=== PATIENT | female | born 1945 | race Caucasian/White ===

== ENCOUNTER → 2016-06-23 | Outpatient (CLI) | payer MEDICARE, OTHER ==
[~2016-06-23] MED LIST: ACET-2723 PO; ASCO500T8 PO; ASPI-558 PO; CHOL100034 PO; CLOP75TA19 PO; FISH1CAP59 PO; HYDR-2164 PO; HYDR-4246 PO; IOHEXOL 300 MG/ML 100ml INJECTION ONE; LOSA50TA52 PO; MAGN400T31 PO; METO-68 PO; METO25TA6 PO; NITR0.4T SL; NITR1PAT62 TD; NORMAL SALINE 100 ML ONE; ONDA4TAB7 SL; PANT40TA PO; POTA10TA14 PO; SALINE FLUSH 10ml SYRINGE ONE; SIMV80TA5 PO; [UNRECOGNIZED DRUG - CODE] PO
[2016-06-23 11:01] LABS: BASOPHILS % (AUTO) 0.3 % (0-2); EOSINOPHILS # (AUTO) 0.1 T/MM3 (0-0.5); EOSINOPHILS % (AUTO) 1.6 % (0-4); HCT - HEMATOCRIT 38.8 % (36-46); HGB - HEMOGLOBIN 12.9 GM/DL (12-16); IMMATURE GRANULOCYTE # (AUTO) 0.01 T/MM3 (0.00-0.03); IMMATURE GRANULOCYTE % (AUTO) 0.3 % (0.0-0.5); LYMPHOCYTES # (AUTO) 1.3 T/MM3 (1-4.8); LYMPHOCYTES % (AUTO) 33.9 % (23-45); MEAN CORPUSCULAR HGB 30.4 UUG (26-34); MEAN CORPUSCULAR HGB CONC(MCHC 33.2 GM/DL (31-37); MEAN CORPUSCULAR VOLUME 91.5 UM3 (80-100); MEAN PLATELET VOLUME 10.7 UM3 (9.4-12.4); MONOCYTES # (AUTO) 0.4 T/MM3 (0-0.8); MONOCYTES % (AUTO) 10.3 % (0-9.0); NEUTROPHILS % (AUTO) 53.6 % (33-66); RED BLOOD COUNT 4.24 M/MM3 (4.00-5.20); WBC - WHITE BLOOD COUNT 3.8 T/MM3 (4.5-11.0)
[2016-06-23 11:14] LABS: ALBUMIN/GLOBULIN RATIO 1.5 RATIO (1.1-2.2); ALKALINE PHOSPHATASE 87 U/L (38-126); ALT (SGPT) 42 U/L (9-52); ANION GAP 10 MEQ/L (5-15); AST (SGOT) 28 U/L (14-36); BUN/CREATININE RATIO 28 RATIO (6-26); CALCIUM 9.9 MG/DL (8.4-10.2); CHLORIDE 101 MEQ/L (98-107); CO2 - CARBON DIOXIDE 29 MEQ/L (22-30); CREATININE 0.8 MG/DL (0.7-1.2); GLOMERULAR FILTRATION RATE 71; GLUCOSE 95 MG/DL (65-110); LDH 392 U/L (313-618); POTASSIUM 3.2 MEQ/L (3.6-5); SODIUM 140 MEQ/L (134-144); TOTAL PROTEIN 6.6 G/DL (6.3-8.2)
--- NOTE | 2016-06-23 11:22 | DI ---
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 Coronal and sagittal two-dimensional reformats. Automated Exposure Control and Iterative Reconstruction dose reducing techniques were utilized. Contrast: Omnipaque 300 93 mL Findings: Chest: The lungs are stable in appearance. No consolidative pneumonia, pleural effusion or pneumothorax. No new or worrisome pulmonary nodules or masses. The central airways are patent. Bilateral thyroid nodules again noted. No axillary or mediastinal adenopathy. Heart size is unchanged. No pericardial effusion. Abdomen/pelvis: The liver is normal. Gallbladder is surgically absent. The spleen, pancreas and adrenal glands are within normal limits. Kidneys are stable. No abdominal or pelvic lymphadenopathy. Bladder is normal. Uterus is surgically absent. No free fluid or bowel obstruction. Minimal sigmoid diverticulosis. There is new inflammation and stranding seen adjacent to the tip of the appendix best seen on axial images 62 through 67. The appendix is also enlarged at 1 cm in diameter. On prior studies the appendix was normal caliber and there were no visible inflammatory changes in this area. No free air or abscess identified. Bone windows show degenerative change in the spine with multiple vertebral hemangiomas. Impression: 1. CT findings suggesting acute appendicitis. Recommend clinical and laboratory correlation. Surgical consultation may be helpful. 2. No evidence of metastatic disease in the chest, abdomen or pelvis. Findings were called to Dr. Dunbar at 1117 on 06/23/16. .
== END ==
LOC: IMA 08:25
PROVIDERS: ATTEND Internal Medicine Medical Oncology
DX: C82.18 Follicular lymphoma grade II, lymph nodes of multiple sites (principal); K38.9 Disease of appendix, unspecified; D64.9 Anemia, unspecified; D70.2 Other drug-induced agranulocytosis
CPT/HCPCS: 36415; 71260; 74177; 80053; 83615; 85025; J7050; Q9967

== ENCOUNTER 2016-07-10 11:26 | Day surgery (SDC) | payer MEDICARE, OTHER ==
[~2016-07-10] VITALS: Ht 177.8 cm; Wt 105.2 kg
[2016-07-10] VITALS (21 sets, daily range): BP systolic 117–144; BP diastolic 59–75; PULSE 70–92; RESP 12–30; TEMP 97.3–98; O2SAT 90–100; Ht 177.8 cm; Wt 105.2 kg
[~2016-07-10 11:26] MED LIST changes: +ATOR40TA64 PO; -FISH1CAP59 PO; -HYDR-4246 PO; -IOHEXOL 300 MG/ML 100ml INJECTION ONE; +LIDOCAINE 1% (10mg/ml) 2ml SDV INJ ONE; +LR 1,000 ML IV PRN; -NORMAL SALINE 100 ML ONE; -ONDA4TAB7 SL; -SALINE FLUSH 10ml SYRINGE ONE; -SIMV80TA5 PO
--- OUTSIDE RECORDS SUMMARY | 2016-07-10 11:30 | XMS REPORT | CCD ---
Author Author [facility] Organization Unknown Address [address], [place] [id number] Phone 0 Care Team Providers Care Microsoft Application Developer Name Role Phone LORRAINE NGUYEN Attending Physician 0 VINCENZO ENRIQUE Physician [phone] Vital Signs Unknown or Not Available. Allergies Allergy Code Allergy Type Reaction Status IBUPROFEN 5640 Drug allergy Active Procedures Unknown or Not Available. History of Immunizations Unknown or Not Available. Problems Unknown or Not Available. Results CALCIUM - Collect Date/Time: 05/24/2015 10:55 Test Name Code Test Result Test Units Test Ref Range CALCIUM 10.5 mg/dL L=8.5 H=10.1 LIPID PANEL - Collect Date/Time: 05/24/2015 10:55 Test Name Code Test Result Test Units Test Ref Range CHOLESTEROL 195 mg/ dL L=0 H=200 TRIGLYCERIDES 180 mg /dL L=30 H=150 HDL 51 mg/dL L=50 H=60 LDL, CALC 108 mg/dL L=0 H=100 VLDL 36 mg/dL L=0 H=40 CHOL/HDL RISK 3.8 RATIO L=0.0 H=4.4 PT FASTING: YES N/A PTH, INTACT - Collect Date/Time: 05/24/2015 10:55 Test Name Code Test Result Test Units Test Ref Range PTH, Intact 2731-8 72 pg/mL 15-65 Active Medications Medication Code Dose Units Frequency Route Modification Start Date/Time Allopurinol 300MG Oral Tablet [id number] 300 MILLIGRAMS DAILY ORAL 08/15/2012 11:45 Prescription Detail 300 MILLIGRAMS ORAL DAILY Aspirin 81MG Oral Tablet [id number] 81 MILLIGRAMS AT BEDTIME ORAL 08/15/2012 11:45 Prescription Detail 81 MILLIGRAMS ORAL AT BEDTIME Ativan 0.5MG Oral Tablet [id number] 0.5 MILLIGRAMS NEEDED ORAL 08/15/2012 11:45 Prescription Detail 0.5 MILLIGRAMS ORAL NEEDED Citracal + D 315MG-200IU Oral Tablet [id number] 1 EACH DAILY ORAL 08/15/2012 11:45 Prescription Detail 1 EACH ORAL DAILY Fish Oil 1000MG Oral Capsule, Liquid Filled [id number] 0046 MILLIGRAMS THREE TIMES DAILY ORAL 2012 11:45 Prescription Detail 1000 MILLIGRAMS ORAL THREE TIMES DAILY Magnesium Oxide 400MG Oral Tablet [id number] 400 MILLIGRAMS DAILY ORAL 08/15/2012 11:45 Prescription Detail 400 MILLIGRAMS ORAL DAILY Metoprolol 25MG Oral Tablet [id number] 25 MILLIGRAMS AT BEDTIME ORAL 08/15/2012 11:45 Prescription Detail 25 MILLIGRAMS ORAL AT BEDTIME Metoprolol 50MG Oral Tablet 865911 50 MILLIGRAMS DAILY ORAL 08/15/2012 11:45 Prescription Detail 50 MILLIGRAMS ORAL DAILY Multivitamin Oral Tablet [id number] 1 EACH DAILY ORAL 08/15/2012 11:45 Prescription Detail 1 EACH ORAL DAILY Niacin 1000MG Oral Tablet, Extended Release [id number] 5690 MILLIGRAMS AT BEDTIME ORAL 08/15/2012 11:45 Prescription Detail 1000 MILLIGRAMS ORAL AT BEDTIME Nitrostat 0.4MG Sublingual Tablet 047055 0.4 MILLIGRAMS NEEDED SUBLINGUAL 08/15/2012 11:45 Prescription Detail 0.4 MILLIGRAMS SUBLINGUAL NEEDED Plavix 75MG Oral Tablet [id number] 75 MILLIGRAMS DAILY ORAL 08/15/2012 11:45 Prescription Detail 75 MILLIGRAMS ORAL DAILY Protonix 40MG Oral Tablet, Enteric Coated 287889 40 MILLIGRAMS DAILY ORAL 08/15/2012 11:45 Prescription Detail 40 MILLIGRAMS ORAL DAILY Simvastatin 80MG Oral Tablet [id number] 80 MILLIGRAMS AT BEDTIME ORAL 08/15/2012 11:45 Prescription Detail 80 MILLIGRAMS ORAL AT BEDTIME Tylenol Extra Strength 500MG Oral Tablet [id number] 4473 MILLIGRAMS TWICE A DAY ORAL 08/15/2012 11:45 Prescription Detail 1000 MILLIGRAMS ORAL TWICE A DAY Vitamin B Complex Oral Capsule 288248 1 EACH DAILY ORAL 08/15/2012 11:45 Prescription Detail 1 EACH ORAL DAILY Medications Administered During Visit Unknown or Not Available. Encounters Encounter Diagnosis Diagnosis Code Start Date Primary hyperparathyroidism E210 2015 Social History Smoking Status Code Start Date End Date Never smoker [id number] Patient Decision Aids Unknown or Not Available. Discharge Instructions You were admitted to [facility] on 05/24/2015 10:27 with a principal diagnosis of Primary hyperparathyroidism You had the following tests done: CALCIUM LIPID PANEL PTH, INTACT You were discharged from [facility] on 05/24/2015 10:27 Should you have any questions prior to discharge, please contact a member of your healthcare team. If you have left the hospital and have any questions, please contact your primary care physician. Chief Complaint and Reason For Visit Unknown or Not Available. Function Status Unknown or Not Available. Plan of Care Unknown or Not Available. Referral/Transition of Care Unknown or Not Available.
--- OUTSIDE RECORDS SUMMARY | 2016-07-10 11:30 | XMS REPORT | CCD ---
Author Author [facility] Organization Unknown Address [address], [place] [id number] Phone 0 Care Team Providers Care Commuter Train Operator Name Role Phone BRYCE JAVIER Attending Physician [phone] Vital Signs Unknown or Not Available. Allergies Allergy Code Allergy Type Reaction Status IBUPROFEN 5640 Drug allergy Active Procedures Unknown or Not Available. History of Immunizations Unknown or Not Available. Problems Unknown or Not Available. Results BASIC METABOLIC - Collect Date/Time: 03/18/2016 15:05 Test Name Code Test Result Test Units Test Ref Range GLUCOSE 97 mg/dL L=70 H=110 BUN 25 mg/dL L=7 H=18 CREATININE 0.89 mg/ dL L=0.60 H=1.30 AGE 70 YEARS GFR 62.7 L=60.0 H=120 SODIUM 139 mmol/L L=136 H=145 POTASSIUM 3.4 mmol/ L L=3.5 H=5.1 CHLORIDE 101 mmol/L L=98 H=107 CO2 28 mmol/L L=21 H=32 CALCIUM 9.8 mg/dL L=8.5 H=10.1 LIPID PANEL - Collect Date/Time: 03/18/2016 15:05 Test Name Code Test Result Test Units Test Ref Range CHOLESTEROL 164 mg/ dL L=0 H=200 TRIGLYCERIDES 139 mg /dL L=30 H=150 HDL 56 mg/dL L=50 H=60 LDL, CALC 80 mg/dL L=0 H=100 VLDL 28 mg/dL L=0 H=40 CHOL/HDL RISK 2.9 RATIO L=0.0 H=4.4 PT FASTING: NO N/A CBC W/ DIFF - Collect Date/Time: 03/18/2016 15:05 Test Name Code Test Result Test Units Test Ref Range WBC 4.4 x10^3 L=4.8 H=10.8 RBC 4.70 x10^6 L=4.20 H=5.40 HEMOGLOBIN 13.9 g/ dL L=12.0 H=16.0 HEMATOCRIT 41.3 % L=37.0 H=47.0 MCV 88 fL L=80 H=100 MCH 29.6 pg L=27.0 H=33.0 MCHC 33.7 g/dL L=33.0 H=37.0 RDW 12.5 % L=11.5 H=14.5 PLATELETS 157 x10^3 L=150 H=450 MPV 8.7 fL L=7.8 H=11.0 NEUTROPHILS 50.1 % L=40.0 H=80.0 LYMPHOCYTES 33.1 % L=20.0 H=45.0 MONOCYTES 14.1 % L=0.0 H=10.0 EOSINOPHILS 2.0 % L=0.0 H=5.0 BASOPHILS 0.7 % L=0.0 H=2.0 REFLEX MAN DIFF NO N /A Active Medications Medication Code Dose Units Frequency Route Modification Start Date/Time Allopurinol 300MG Oral Tablet [id number] 300 MILLIGRAMS DAILY ORAL 08/15/2012 11:45 Prescription Detail 300 MILLIGRAMS ORAL DAILY Aspirin 81MG Oral Tablet 427802 81 MILLIGRAMS AT BEDTIME ORAL 08/15/2012 11:45 Prescription Detail 81 MILLIGRAMS ORAL AT BEDTIME Ativan 0.5MG Oral Tablet 019711 0.5 MILLIGRAMS NEEDED ORAL 08/15/2012 11:45 Prescription Detail 0.5 MILLIGRAMS ORAL NEEDED Citracal + D 315MG-200IU Oral Tablet [id number] 1 EACH DAILY ORAL 08/15/2012 11:45 Prescription Detail 1 EACH ORAL DAILY Fish Oil 1000MG Oral Capsule, Liquid Filled [id number] 2548 MILLIGRAMS THREE TIMES DAILY ORAL 2012 11:45 Prescription Detail 1000 MILLIGRAMS ORAL THREE TIMES DAILY Magnesium Oxide 400MG Oral Tablet [id number] 400 MILLIGRAMS DAILY ORAL 08/15/2012 11:45 Prescription Detail 400 MILLIGRAMS ORAL DAILY Metoprolol 25MG Oral Tablet [id number] 25 MILLIGRAMS AT BEDTIME ORAL 08/15/2012 11:45 Prescription Detail 25 MILLIGRAMS ORAL AT BEDTIME Metoprolol 50MG Oral Tablet 418874 50 MILLIGRAMS DAILY ORAL 08/15/2012 11:45 Prescription Detail 50 MILLIGRAMS ORAL DAILY Multivitamin Oral Tablet [id number] 1 EACH DAILY ORAL 08/15/2012 11:45 Prescription Detail 1 EACH ORAL DAILY Niacin 1000MG Oral Tablet, Extended Release [id number] 4119 MILLIGRAMS AT BEDTIME ORAL 08/15/2012 11:45 Prescription Detail 1000 MILLIGRAMS ORAL AT BEDTIME Nitrostat 0.4MG Sublingual Tablet 690176 0.4 MILLIGRAMS NEEDED SUBLINGUAL 08/15/2012 11:45 Prescription Detail 0.4 MILLIGRAMS SUBLINGUAL NEEDED Plavix 75MG Oral Tablet [id number] 75 MILLIGRAMS DAILY ORAL 08/15/2012 11:45 Prescription Detail 75 MILLIGRAMS ORAL DAILY Protonix 40MG Oral Tablet, Enteric Coated 566164 40 MILLIGRAMS DAILY ORAL 08/15/2012 11:45 Prescription Detail 40 MILLIGRAMS ORAL DAILY Simvastatin 80MG Oral Tablet 754747 80 MILLIGRAMS AT BEDTIME ORAL 08/15/2012 11:45 Prescription Detail 80 MILLIGRAMS ORAL AT BEDTIME Tylenol Extra Strength 500MG Oral Tablet [id number] 5429 MILLIGRAMS TWICE A DAY ORAL 08/15/2012 11:45 Prescription Detail 1000 MILLIGRAMS ORAL TWICE A DAY Vitamin B Complex Oral Capsule 978530 1 EACH DAILY ORAL 08/15/2012 11:45 Prescription Detail 1 EACH ORAL DAILY Medications Administered During Visit Unknown or Not Available. Encounters Encounter Diagnosis Diagnosis Code Start Date Essential (primary) hypertension I10 Social History Smoking Status Code Start Date End Date Never smoker [id number] Patient Decision Aids Unknown or Not Available. Discharge Instructions You were admitted to [facility] on 03/18/2016 15:01 with a principal diagnosis of Essential (primary) hypertension You had the following tests done: BASIC METABOLIC CBC W/ DIFF LIPID PANEL You were discharged from [facility] on 03/18/2016 15:01 Should you have any questions prior to discharge, please contact a member of your healthcare team. If you have left the hospital and have any questions, please contact your primary care physician. Chief Complaint and Reason For Visit Chief Complaint Date of Onset LAB Function Status Unknown or Not Available. Plan of Care Unknown or Not Available. Referral/Transition of Care Unknown or Not Available.
--- OUTSIDE RECORDS SUMMARY | 2016-07-10 11:31 | XMS REPORT | Continuity of Care Document ---
Author Author [facility] Organization [facility] Address Unknown Phone Unavailable Allergies Active Description Code Type Severity Reaction Onset Reported/Identified Relationship to Patient Clinical Status Yes ezetimibe ezetimibe Drug Allergy Mild COUGH 09/13/2014 Yes ibuprofen ibuprofen Drug Allergy Mild SWELLING, RASH, HIVES 09/13/2014 Medications Problems Date Dx Coded Attending Type Code Diagnosis Diagnosed By 09/13/2014 Theresa CHRISTIAN, Carlos Alegre V72.83 Procedures Code Description Performed By Performed On 17.42 LAPAROSCOPIC ROBOTIC ASSISTED PROCEDURE Carlos Cardenas MD 09/26/2014 40.3 REGIONAL LYMPH NODE EXC Carlos Cardenas MD 09/26/2014 65.63 LAPAROSCOP REMOVE OVARIES/TUBES Carlos Cardenas MD 09/26/2014 68.41 LAPAROSCOPIC TOTAL ABDOMINAL HYSTERECTOMY Carlos Cardenas MD 09/26/2014 Results Test Result Range CBC - 09/13/14 09:31 MEAN CELL HGB 30.4 pg 27.0-33.0 MEAN CELL HGB CONCENTRATION 34.4 g/dL 32.0-37.0 MEAN CELL VOLUME 88.3 fl 80.0-100.0 RED BLOOD CELL 4.54 m/cumm 4.00-6.00 RED CELL DISTRIBUTION WIDTH 12.9 % 11.0- 15.6 WHITE BLOOD CELL 4.2 k/cumm 5.0-10.0 HEMOGLOBIN 13.8 gm/dL 12.0-16.0 HEMATOCRIT 40.1 % 37.0-47.0 PLATELET COUNT 131 k/cumm 150-400 METABOLIC PANEL, BASIC - 09/13/14 09:31 POTASSIUM 3.6 mmol/L 3.5-5.3 EST GFR (MDRD) 43 mL/min > 59 ANION GAP 9 mmol/L 5-15 GLUCOSE 117 mg/dL 70-99 CALCIUM 10.3 mg/dL 8.5-10.1 BLOOD UREA NITROGEN 20 mg/dL 7-20 CREATININE 1.3 mg/dL 0.6-1.0 SODIUM 139 mmol/L 135-148 CHLORIDE 105 mmol/L 98-110 CARBON DIOXIDE 25 mmol/L 21-32 POTASSIUM - 09/26/14 07:37 POTASSIUM 3.9 mmol/L 3.5-5.3 FLUID CYTOLOGY - 09/26/14 09:20 FLUID CYTOLOGY SPECIMEN RECEIVED HGB HCT - 09/26/14 16:28 MEAN CELL VOLUME 90.1 fl 80.0-100.0 HEMOGLOBIN 13.0 gm/dL 12.0-16.0 HEMATOCRIT 39.3 % 37.0-47.0 Encounters ACCT No. Visit Date/Time Discharge Status Pt. Type Provider Facility Loc./Unit Complaint [id number] 09/26/2014 06:11:00 2014 22:23:00 DIS Outpatient Theresa CHRISTIAN, [facility] [id number] 09/13/2014 08:24:00 2014 08:24:00 DIS Outpatient Theresa CHRISTIAN, [facility]
--- OUTSIDE RECORDS SUMMARY | 2016-07-10 11:31 | XMS REPORT | CCD ---
Author Author [facility] Organization Unknown Address [address], [place] [id number] Phone 0 Care Team Providers Care Superintendent Stevedoring Name Role Phone ENRIQUE, VINCENZO Attending Physician [phone] BRYCE JAVIER Physician [phone] Vital Signs Unknown or Not Available. Allergies Allergy Code Allergy Type Reaction Status IBUPROFEN 5640 Drug allergy Active Procedures Unknown or Not Available. History of Immunizations Unknown or Not Available. Problems Unknown or Not Available. Results CALCIUM - Collect Date/Time: 05/29/2016 14:35 Test Name Code Test Result Test Units Test Ref Range CALCIUM 10.1 mg/dL L=8.5 H=10.1 PTH, INTACT - Collect Date/Time: 05/29/2016 14:35 Test Name Code Test Result Test Units Test Ref Range PTH, Intact 2731-8 89 pg/mL 15-65 Active Medications Medication Code Dose Units Frequency Route Modification Start Date/Time Allopurinol 300MG Oral Tablet [id number] 300 MILLIGRAMS DAILY ORAL 08/15/2012 11:45 Prescription Detail 300 MILLIGRAMS ORAL DAILY Aspirin 81MG Oral Tablet [id number] 81 MILLIGRAMS AT BEDTIME ORAL 08/15/2012 11:45 Prescription Detail 81 MILLIGRAMS ORAL AT BEDTIME Ativan 0.5MG Oral Tablet 629858 0.5 MILLIGRAMS NEEDED ORAL 08/15/2012 11:45 Prescription Detail 0.5 MILLIGRAMS ORAL NEEDED Citracal + D 315MG-200IU Oral Tablet [id number] 1 EACH DAILY ORAL 08/15/2012 11:45 Prescription Detail 1 EACH ORAL DAILY Fish Oil 1000MG Oral Capsule, Liquid Filled [id number] 6693 MILLIGRAMS THREE TIMES DAILY ORAL 2012 11:45 Prescription Detail 1000 MILLIGRAMS ORAL THREE TIMES DAILY Magnesium Oxide 400MG Oral Tablet 345512 400 MILLIGRAMS DAILY ORAL 08/15/2012 11:45 Prescription Detail 400 MILLIGRAMS ORAL DAILY Metoprolol 25MG Oral Tablet [id number] 25 MILLIGRAMS AT BEDTIME ORAL 08/15/2012 11:45 Prescription Detail 25 MILLIGRAMS ORAL AT BEDTIME Metoprolol 50MG Oral Tablet [id number] 50 MILLIGRAMS DAILY ORAL 08/15/2012 11:45 Prescription Detail 50 MILLIGRAMS ORAL DAILY Multivitamin Oral Tablet [id number] 1 EACH DAILY ORAL 08/15/2012 11:45 Prescription Detail 1 EACH ORAL DAILY Niacin 1000MG Oral Tablet, Extended Release [id number] 2203 MILLIGRAMS AT BEDTIME ORAL 08/15/2012 11:45 Prescription Detail 1000 MILLIGRAMS ORAL AT BEDTIME Nitrostat 0.4MG Sublingual Tablet 723681 0.4 MILLIGRAMS NEEDED SUBLINGUAL 08/15/2012 11:45 Prescription Detail 0.4 MILLIGRAMS SUBLINGUAL NEEDED Plavix 75MG Oral Tablet [id number] 75 MILLIGRAMS DAILY ORAL 08/15/2012 11:45 Prescription Detail 75 MILLIGRAMS ORAL DAILY Protonix 40MG Oral Tablet, Enteric Coated [id number] 40 MILLIGRAMS DAILY ORAL 08/15/2012 11:45 Prescription Detail 40 MILLIGRAMS ORAL DAILY Simvastatin 80MG Oral Tablet [id number] 80 MILLIGRAMS AT BEDTIME ORAL 08/15/2012 11:45 Prescription Detail 80 MILLIGRAMS ORAL AT BEDTIME Tylenol Extra Strength 500MG Oral Tablet [id number] 6681 MILLIGRAMS TWICE A DAY ORAL 08/15/2012 11:45 Prescription Detail 1000 MILLIGRAMS ORAL TWICE A DAY Vitamin B Complex Oral Capsule 170429 1 EACH DAILY ORAL 08/15/2012 11:45 Prescription Detail 1 EACH ORAL DAILY Medications Administered During Visit Unknown or Not Available. Encounters Encounter Diagnosis Diagnosis Code Start Date Primary hyperparathyroidism E210 2016 Social History Smoking Status Code Start Date End Date Never smoker [id number] Patient Decision Aids Unknown or Not Available. Discharge Instructions You were admitted to [facility] on 05/29/2016 14:17 with a principal diagnosis of Primary hyperparathyroidism You had the following tests done: CALCIUM PTH, INTACT You were discharged from [facility] on 05/29/2016 14:17 Should you have any questions prior to [...]
--- OUTSIDE RECORDS SUMMARY | 2016-07-10 11:31 | XMS REPORT | CCD ---
Author Author [facility] Organization Unknown Address [address], [place] [address] Phone 0 Care Team Providers Care Procurement Agent Name Role Phone HOLLY MELENDEZ Attending Physician [phone] Vital Signs Unknown or Not Available. Allergies Allergy Code Allergy Type Reaction Status IBUPROFEN 5640 Drug allergy Active Procedures Unknown or Not Available. History of Immunizations Unknown or Not Available. Problems Unknown or Not Available. Results Unknown or Not Available. Active Medications Medication Code Dose Units Frequency Route Modification Start Date/Time Allopurinol 300MG Oral Tablet [id number] 300 MILLIGRAMS DAILY ORAL 08/15/2012 11:45 Prescription Detail 300 MILLIGRAMS ORAL DAILY Aspirin 81MG Oral Tablet [id number] 81 MILLIGRAMS AT BEDTIME ORAL 08/15/2012 11:45 Prescription Detail 81 MILLIGRAMS ORAL AT BEDTIME Ativan 0.5MG Oral Tablet 751844 0.5 MILLIGRAMS NEEDED ORAL 08/15/2012 11:45 Prescription Detail 0.5 MILLIGRAMS ORAL NEEDED Citracal + D 315MG-200IU Oral Tablet [id number] 1 EACH DAILY ORAL 08/15/2012 11:45 Prescription Detail 1 EACH ORAL DAILY Fish Oil 1000MG Oral Capsule, Liquid Filled [id number] 1917 MILLIGRAMS THREE TIMES DAILY ORAL 2012 11:45 Prescription Detail 1000 MILLIGRAMS ORAL THREE TIMES DAILY Magnesium Oxide 400MG Oral Tablet [id number] 400 MILLIGRAMS DAILY ORAL 08/15/2012 11:45 Prescription Detail 400 MILLIGRAMS ORAL DAILY Metoprolol 25MG Oral Tablet [id number] 25 MILLIGRAMS AT BEDTIME ORAL 08/15/2012 11:45 Prescription Detail 25 MILLIGRAMS ORAL AT BEDTIME Metoprolol 50MG Oral Tablet [id number] 50 MILLIGRAMS DAILY ORAL 08/15/2012 11:45 Prescription Detail 50 MILLIGRAMS ORAL DAILY Multivitamin Oral Tablet [id number] 1 EACH DAILY ORAL 08/15/2012 11:45 Prescription Detail 1 EACH ORAL DAILY Niacin 1000MG Oral Tablet, Extended Release [id number] 3102 MILLIGRAMS AT BEDTIME ORAL 08/15/2012 11:45 Prescription Detail 1000 MILLIGRAMS ORAL AT BEDTIME Nitrostat 0.4MG Sublingual Tablet 611643 0.4 MILLIGRAMS NEEDED SUBLINGUAL 08/15/2012 11:45 Prescription Detail 0.4 MILLIGRAMS SUBLINGUAL NEEDED Plavix 75MG Oral Tablet 688683 75 MILLIGRAMS DAILY ORAL 08/15/2012 11:45 Prescription Detail 75 MILLIGRAMS ORAL DAILY Protonix 40MG Oral Tablet, Enteric Coated 288983 40 MILLIGRAMS DAILY ORAL 08/15/2012 11:45 Prescription Detail 40 MILLIGRAMS ORAL DAILY Simvastatin 80MG Oral Tablet [id number] 80 MILLIGRAMS AT BEDTIME ORAL 08/15/2012 11:45 Prescription Detail 80 MILLIGRAMS ORAL AT BEDTIME Tylenol Extra Strength 500MG Oral Tablet 228790 6447 MILLIGRAMS TWICE A DAY ORAL 08/15/2012 11:45 Prescription Detail 1000 MILLIGRAMS ORAL TWICE A DAY Vitamin B Complex Oral Capsule 175717 1 EACH DAILY ORAL 08/15/2012 11:45 Prescription Detail 1 EACH ORAL DAILY Medications Administered During Visit Unknown or Not Available. Encounters Encounter Diagnosis Diagnosis Code Start Date Pain in right wrist [id number] 05/04/2015 Social History Smoking Status Code Start Date End Date Never smoker [id number] Patient Decision Aids Unknown or Not Available. Discharge Instructions You were admitted to [facility] on 05/04/2015 with a principal diagnosis of Pain in right wrist. Should you have any questions prior to discharge, please contact a member of your healthcare team. If you have left the hospital and have any questions, please contact your primary care physician. Chief Complaint and Reason For Visit Chief Complaint Date of Onset O.T. Function Status Unknown or Not Available. Plan of Care Unknown or Not Available. Referral/Transition of Care Unknown or Not Available.
[2016-07-10 12:25] LABS: BASOPHILS % (AUTO) 0.2 % (0-2); EOSINOPHILS # (AUTO) 0.1 T/MM3 (0-0.5); HCT - HEMATOCRIT 41.7 % (36-46); HGB - HEMOGLOBIN 14.2 GM/DL (12-16); LYMPHOCYTES # (AUTO) 1.2 T/MM3 (1-4.8); LYMPHOCYTES % (AUTO) 24.3 % (23-45); MEAN CORPUSCULAR HGB 30.6 UUG (26-34); MEAN CORPUSCULAR HGB CONC(MCHC 34.1 GM/DL (31-37); MEAN CORPUSCULAR VOLUME 89.9 UM3 (80-100); MEAN PLATELET VOLUME 11.6 UM3 (9.4-12.4); MONOCYTES # (AUTO) 0.4 T/MM3 (0-0.8); MONOCYTES % (AUTO) 8.4 % (0-9.0); NEUTROPHILS #(AUTO)-ABSOLUTE 3.4 T/MM3 (1.8-7.7); NEUTROPHILS % (AUTO) 66.1 % (33-66); RED BLOOD COUNT 4.64 M/MM3 (4.00-5.20); WBC - WHITE BLOOD COUNT 5.1 T/MM3 (4.5-11.0)
[2016-07-10 12:35] LABS: ANION GAP 12 MEQ/L (5-15); BUN/CREATININE RATIO 25 RATIO (6-26); CALCIUM 10.8 MG/DL (8.4-10.2); CHLORIDE 102 MEQ/L (98-107); CO2 - CARBON DIOXIDE 30 MEQ/L (22-30); CREATININE 0.8 MG/DL (0.7-1.2); GLOMERULAR FILTRATION RATE 71; GLUCOSE 117 MG/DL (65-110); POTASSIUM 3.4 MEQ/L (3.6-5); SODIUM 144 MEQ/L (134-144)
[2016-07-10] MEDS ORDERED: ERTAPENEM 1 G in NORMAL SALINE 100 ML IV ONE (13:00)
--- NOTE | 2016-07-10 13:48 | ANESPREOP ---
Anesthesia Record Date and Time DATE: 07/10/16 TIME: 13:44 Pre-Op Diagnosis rt. lower abd. pain Proposed Surgical Procedure DX LAPARASCOPY/LAP APPY Allergies: Coded Allergies: ibuprofen (Verified Allergy, Intermediate, SWOLLEN,HIVES, 07/10/16) ezetimibe (Verified Adverse Reaction, Mild, COUGH, 07/10/16) Ht/Wt/BMI Height: 5 ' 10.00 " Weight: 105.200 kg BMI: 33.3 kg/m2 Vital Signs Date Time Temp Pulse Resp B/P Pulse Ox O2 Delivery O2 Flow Rate FiO2 07/10/16 11:56 98.0 72 16 144/75 95 Room Air Medications Inpatient Medications Current Medications Medications (Trade) Dose Ordered Sig/Korin Start Time Stop Time Status Last Admin Dose Admin Lactated Ringer's (Lactated Ringers) 1,000 ml @ 50 mls/hr Q20H PRN 07/10/16 07:00 07/10/16 12:24 50 MLS/HR Acetaminophen (Tylenol Extra Strength) 500 Mg Tablet, 1,000 MG PO BID, (Reported ) Last Taken: on 07/09/162229 Ascorbic Acid (Vitamin C) 500 Mg Tab.chew, 1 TAB PO DAILY, (Reported) Last Taken: on Unknown Date & Time Aspirin (Aspir 81) 81 Mg Tablet.dr, 1 TAB PO HS, (Reported) Last Taken: on 07/02/16 2300 Atorvastatin Calcium (Atorvastatin Calcium) 40 Mg Tablet, 1 TAB PO HS, (Reported) Last Taken: on 07/09/162229 Cholecalciferol (Vitamin D3) (Vitamin D3) 1,000 Unit Tab.chew, 1 TAB PO DAILY, (Reported) Last Taken: on 07/09/16 08 Clopidogrel Bisulfate (Plavix) 75 Mg Tablet, 1 TAB PO DAILY, (Reported) Last Taken: on 07/02/16 08 Hydrochlorothiazide (Hydrochlorothiazide) 25 Mg Tablet, 25 MG PO DAILY, (Reported) Last Taken: on 07/09/16829 Losartan Potassium (Losartan Potassium) 50 Mg Tablet, 50 MG PO DAILY, (Reported) Last Taken: on 07/09/16 08 Magnesium Oxide (Magox 400) 400 Mg Tablet, 800 MG PO DAILY, (Reported) Last Taken: on 07/09/16829 Metoprolol Tartrate (Metoprolol Tartrate) 50 Mg Tablet, 50 MG PO DAILY, (Reported) Last Taken: on 07/10/16829 Metoprolol Tartrate (Metoprolol Tartrate) 25 Mg Tablet, 25 MG PO HS, (Reported) Last Taken: on 07/09/162229 Niacin (Slo-Niacin) 500 Mg Tablet.er, 500 MG PO HS, (Reported) Last Taken: on 07/09/162229 Nitroglycerin (Nitroglycerin 24 HR Patch 0.2 MG/ HR) 1 Each Patch.td24, TD PRN, (Reported) Last Taken: on Unknown Date & Time Nitroglycerin (Nitrostat) 0.4 Mg Tablet , 0.4 MG SL PRN, (Reported) Last Taken: on Unknown Date & Time Pantoprazole Sodium (Protonix) 40 Mg Tablet.dr, 40 MG PO ACB, (Reported) Take 1 tablet, by mouth, one time a day before breakfast. Last Taken: on 07/10/16829 Potassium Chloride (Potassium Chloride) 10 Meq Tablet.er, 10 MEQ PO WB, (Reported) Take 1 tablet, by mouth, daily with breakfast Last Taken: on 07/09/16829 Currently on Beta Radha: Yes Beta Radha Last Taken: METPROLOL AT 0830 06/09/16 Medical/Surgical History Anesthesia PMH: Reports: *Angina (none since HEART CATH IN 2012), *Dyspnea ( WITH EXERTION), *Hypertension, *IN (2006), Arthritis, CHF (MILD), COPD (PER H&P ; patient denies), Cancer (UTERIN,NON HODG[place]INS LYMPHOMA 2012 - REMISSION), Deep Vein Thrombosis (1974-RIGHT LEG), Hyperlipidemia, Obesity, Reflux (controlled with med), Thyroid Disease (HYPERPARATHYROIDISM), Denies: *Diabetes, Anesthesia Reactions (NO AIRWAY ISSUES KNOWN), Asthma, Blood Transfusion Reac, CVA/Stroke/ TIA, Clotting Problems (ON PLAVIX), Glaucoma, Headaches, Hepatitis, Hiatal Hernia, Malignant Hyperthermia, Pneumonia, Renal Disease, Rheumatic Fever, Seizures, Sleep Apnea, Tuberculosis Smoking Status: Former smoker Has pt. smoked today?: No Use Chewing Tobacco?: No Second Hand Exposure: No Substance Use Type: does not use Substance last used: unknown Alcohol Intake: rarely Last Drink: unknown HX of Last Menstrual Period: 2014 Past Surgical History Orthopedic Surgeries: Yes - PLATE IN BILATERAL ARM Abdominal Surgeries: Yes - LAP SIVA Genitourinary Surgeries: No Cardiac Surgeries: Yes - STENT X 2 2009 or 2010; normal heart cath 2012 Endocrine Surgeries: No Reproductive Surgeries: Yes - COLD KNIFE CONE CERVIX,HYSTERECTOMY Neurological Surgeries: No Ear Surgeries: No Nose Surgeries: No Throat Surgeries: No Other Surgeries: Yes - COLONOSCOPY, POWER PORT; Lymph node biopsy right axilla Anesthesia Adverse Reactions: FOUND none Family Hx of Anesthesia Advers: none Hx of Motion Sickness: No Pertinent Findings Laboratory Tests 07/10/16 12:11 EKG Rhythm: Sinus Arhythmia EKG Ectopy: PAC Physical Exam Respiratory: Bilat breath sounds equal, Lungs clear Cardiovascular: FOUND Irregularly irregular, FOUND No murmur Airway Assessment Mallampati Score: II TMD: 3 Fingerbreadths Neck Extension: Good Overall Assessment: No Airway Concerns ASA: 2 Plan Anesthesia Plan: GETA Discussion Discussed risks/options/alternatives of anesthesia and questions answered. Patient consents. Nursing pain assessment noted. Present: Family Member Attestation Statement Prior to the delivery of any anesthetic medication, I examined the patient, developed the plan, obtained the patient's consent and discussed the risk and benefits of the procedure with the patient/guardian. JOY LEBRON OUTSIDE RIGGER Jul 10, 2016 13:48
[2016-07-10] MEDS ORDERED: BUPIVACAINE 0.25%/EPI 1:200,000 30ml SDV ONE (13:53)
[2016-07-10] MEDS ORDERED: VECURONIUM 10mg/10ml INJECTION IV ONE (13:55)
[2016-07-10] MEDS ORDERED: PROPOFOL 200mg 20 ML IV ONE (13:55)
[2016-07-10] MEDS ORDERED: ROCURONIUM 50mg/5ml INJECTION IV ONE ×2 (13:55)
[2016-07-10] MEDS ORDERED: LIDOCAINE 2% (20mg/ml) 5ml PF SDV ONE ×2 (13:55)
[2016-07-10] MEDS ORDERED: FENTANYL 250mcg/5ml INJECTION ONE (13:57)
[2016-07-10] MEDS ORDERED: MIDAZOLAM 2mg/2ml INJECTION ONE (13:59)
[2016-07-10] MEDS ORDERED: ONDANSETRON 4mg/2ml INJECTION ONE (13:59)
[2016-07-10] MEDS ORDERED: GLYCOPYRROLATE 0.4mg/2ml INJECTION ONE (13:59)
[2016-07-10] MEDS ORDERED: DESFLURANE 240 ML LIQUID IH ONE (14:20)
[2016-07-10] MEDS ORDERED: SUGAMMADEX 200 MG/2 ML INJECTION IV ONE (14:52)
[2016-07-10] MEDS ORDERED: LR 1,000 ML IV SCH (15:07)
--- NOTE | 2016-07-10 15:12 | GSPOSTPN ---
Procedure Procedure Date: Jul 10, 2016 Surgeon: David Assisting Surgeon: Teodoro Zhu Anesthesia: Local, GETA ASA: 2 Procedure Diagnostic laparoscopy, appendectomy GS Diagnosis Postop Diagnosis chronic appendicitis Complications Complications Estimated Blood Loss See Anesthesia Record. Vital Signs See Anesthesia and PACU record. KINZA ZHU APRN, CWS Jul 10, 2016 15:12
[2016-07-10] MEDS ORDERED: MORPHINE SULFATE 4 MG SYRINGE IV PRN (15:15)
[2016-07-10] MEDS ORDERED: NITROGLYCERIN 0.4 MG SUBLINGUAL TABLET SL SCH (15:15)
[2016-07-10] MEDS ORDERED: NITROGLYCERIN 0.2 MG/HR PATCH TD PRN (15:15)
[2016-07-10] MEDS ORDERED: HYDROCODONE/APAP 5 mg/325 mg TABLET PO PRN (15:15)
[2016-07-10] MEDS ORDERED: HYDR-4246 PO (15:16)
[2016-07-10] MEDS ORDERED: NITROGLYCERIN 0.4 MG SUBLINGUAL TABLET SL PRN (15:30)
[2016-07-10] MEDS: HYDROMORPHONE 2mg/ml INJECTION IV PRN ×2 (15:38→15:49)
--- NOTE | 2016-07-10 16:05 | NUR ---
TRANSFER FROM SURGERY VIA CART. PT ASSISTED TRANSFER FROM CART TO BED WITH RNX2 AND SLIDEBOARD. PT A&OX3. REPORTS PAIN 2/10. ABDOMINAL INCISION SITES X3, DERMABOND, C/D/I. WILL CONTINUE TO MONITOR.
--- NOTE | 2016-07-10 16:56 | ANESPO ---
Post-Op Note Date 07/10/16 Time: 15:46 Status Pt Participated in Evaluation: Pt participated in person Vital Signs Date Time Temp Pulse Resp B/P Pulse Ox O2 Delivery O2 Flow Rate FiO2 07/10/16 16:35 74 16 134/69 90 Room Air 07/10/16 16:05 97.3 Respiratory Function: Airway patent, Regular respirations Cardiovascular Function: Regular pulse Mental Status: Alert/oriented Pain Level Intensity: 3 Hydration: IV infusing Complications during Recovery None apparent Follow-Up Instructions Instructions Per Surgeon CHUCK YARBROUGH CRNA Jul 10, 2016 16:55
--- NOTE | 2016-07-10 19:20 | NUR ---
STATUS/DISCHARGE PT A&OX3. VSS. X3 LAPAROSCOPIC ABDOMINAL SITES, DERMABOND INTACT, SITES ARE ASYMPTOMATIC. PT REPORTS PAIN 1-2/10, DENIES NEED FOR PAIN MEDICATION. REVIEWED DISCHARGE INSTRUCTIONS WITH PT, ANSWERING ALL QUESTIONS. PRESCRIPTION SENT PREVIOUSLY WITH FAMILY TO FILL PRIOR TO DISCHARGE. PT COMMITS TO FOLLOW-UP APPT. PT REQUESTS PRN [facility] IN ADVANCE OF DRIVE HOME, REPORTING PAIN 1/10. PLACED DISCHARGE DOCUMENTS IN PT FOLDER. FAMILY RETURNED TO PICK-UP PT. PT TRANSFERRED BY WHEELCHAIR TO FAMILY CAR, DRIVING.
[2016-07-11] MEDS ORDERED: PANTOPRAZOLE 40 MG TABLET PO SCH (06:30)
[2016-07-11] MEDS ORDERED: POTASSIUM CHLORIDE 10 MEQ TABLET PO SCH (08:00)
--- NOTE | 2016-07-11 08:31 | OPNOTEF ---
DATE OF PROCEDURE 07/10/2016 SURGEON Arsh Hernandez MD PREOPERATIVE DIAGNOSIS History for right lower quadrant abdominal pain, history for abnormal CT scan revealing evidence for appendicitis. POSTOPERATIVE DIAGNOSIS History for right lower quadrant abdominal pain, history for abnormal CT scan revealing evidence for appendicitis, intraoperative findings consistent with chronic appendicitis. PROCEDURE Laparoscopic appendectomy. ANESTHESIA General endotracheal. EBL AND FLUIDS Please see chart. BRIEF HISTORY/INDICATIONS Mrs. Ward is a 71-year-old female whom I actually met a couple of weeks ago as a result of her history for right lower quadrant abdominal pain and a CT scan revealing evidence for appendicitis. Patient had a several-week history for appendicitis. She had some other associated medical comorbidities. The patient was treated initially with antibiotics and her pain did improve. She continued, however, to experience intermittent pain within the right lower quadrant of her abdomen. Patient did see cardiology and was given clearance from a cardiac standpoint. It was recommended, as a result of her CT scan finding of appendicitis and her ongoing right lower quadrant abdominal pain as well as the fact that she could indeed have an underlying neoplastic process involving her appendix as the underlying etiology for her chronic appendicitis, that she undergo diagnostic laparoscopy with probable appendectomy. Patient presents today to undergo this procedure. For completeness, please refer to notes included in the patient's chart. FINDINGS Upon laparoscopy the liver edge was smooth without nodularities. There were some adhesions between the right lateral abdominal wall and the right colon. In regard to the appendix, the appendix was indeed found to be indurated and fibrotic in nature. Appendix was adherent to the surrounding structures indicative of chronic inflammatory changes. The mid to distal portion of the appendix did appear to be dilated in nature suggestive that there was perhaps underlying neoplastic process involving the mid to distal portion of the appendix. A standard laparoscopic appendectomy was performed without incident. The omentum, small bowel, colon, peritoneal surfaces which were visualized were otherwise within normal limits. DESCRIPTION OF PROCEDURE After informed consent was obtained, the patient was brought to the operative suite and placed on a table in a supine fashion. The abdomen was then prepped and draped in a sterile fashion. Formal time-out was then completed. 0.25% Marcaine with epinephrine was injected just beneath the level of umbilicus. A 2-cm curved incision was then made through the area of analgesia. Dissection was then carried down through deep subcuticular tissues to the underlying fascia. Fascia was grasped with two Norm clamps, retracted anteriorly. A 1 cm incision was then made between the two Norm clamps. A hemostat was then introduced in the fascial incision and gently spread. A U-stitch was then placed with 0 Vicryl. A 12 mm Aure port was then placed in the peritoneal cavity and pneumoperitoneum was then established to a patient pressure of 15 mmHg utilizing carbon dioxide. An additional 5 mm port was then placed within the suprapubic region as well as an additional 10/12 mm port within the right upper quadrant. Abdominal cavity was explored via the laparoscopic. Findings were as noted above. As stated above, there were some adhesions between the ascending colon and the lateral abdominal wall. These adhesions were taken down under direct visualization bluntly as well as with the use of sharp dissection utilizing laparoscopic scissors. One could then see the cecal region to a greater extent. Adjacent to the cecum the patient was found to have an appendix that was enlarged and adherent to the surrounding tissues indicative of ongoing inflammatory changes. There was a segment of small bowel mesentery that was adherent to the appendix. The small bowel was able to be dissected away from the appendix without difficulty bluntly utilizing a laparoscopic suction tip device. The appendix was somewhat adherent along the lateral aspect of the cecum. The appendix was sharply and bluntly dissected away from the edge of the cecum. Next, a small opening was then created within the mesoappendix adjacent to the base of the appendix. A linear stapler was then placed across the base of the appendix containing a GI blue load. The stapler was then fired, resulting in transection of the base of the appendix adjacent to the cecum. Additionally, as stated above, there was some enlargement noted within the mid to distal aspect of the appendix suggesting that there was perhaps an underlying neoplastic process involving the mid to distal portion of the appendix. Care was taken during the course of the procedure not to tear the appendix or create an opening within the appendix. Next, a vascular reload was then placed within a linear stapler and placed across the mesoappendix and fired. One could see some bleeding coming forth from this staple line. A Horizon hemoclip was then placed overlying the site of bleeding upon the staple line resulting in complete hemostasis. The appendix itself was then placed within a laparoscopic retrieval bag and removed via the infraumbilical port site. Irrigation was performed and all irrigant was suctioned till clear. Both staple lines were inspected and found be hemostatic in nature. No evidence for bleeding was present. Next, ports were removed under direct visualization. The previously placed U-stitch was then secured imbricating the fascia at the infraumbilical port site. All skin incisions were then closed in a subcuticular fashion with 4-0 Monocryl. Dermabond was placed overlying the incision. The patient is in process of awakening from her anesthetic and will be sent back to the recovery room once deemed in stable condition. MP
[2016-07-11] MEDS ORDERED: LOSARTAN 50 MG TABLET PO SCH (09:00)
[2016-07-11] MEDS ORDERED: HYDROCHLOROTHIAZIDE 25 MG TABLET PO SCH (09:00)
== END 2016-07-10 19:20 | disposition home or self-care (01) ==
LOC: SRG 11:26 → SCU 11:26
PROVIDERS: ATTEND Surgery
DX: K36 Other appendicitis (principal); N80.5 Endometriosis of intestine; I11.0 Hypertensive heart disease with heart failure; I50.9 Heart failure, unspecified; E78.5 Hyperlipidemia, unspecified; K21.9 Gastro-esophageal reflux disease without esophagitis; E21.3 Hyperparathyroidism, unspecified; I25.2 Old myocardial infarction; Z79.02 Long term (current) use of antithrombotics/antiplatelets; Z79.82 Long term (current) use of aspirin; Z79.899 Other long term (current) drug therapy; Z88.6 Allergy status to analgesic agent; Z88.8 Allergy status to other drugs, medicaments and biological substances; Z86.718 Personal history of other venous thrombosis and embolism; Z85.42 Personal history of malignant neoplasm of other parts of uterus; Z85.72 Personal history of non-Hodgkin lymphomas; Z87.891 Personal history of nicotine dependence; Z95.5 Presence of coronary angioplasty implant and graft; Z90.49 Acquired absence of other specified parts of digestive tract; Z90.710 Acquired absence of both cervix and uterus
CPT/HCPCS: 36415; 44970; 80048; 85025; 93005; A9270; J1170; J1335; J2250; J2405; J2704; J3010; J7030; J7050; J7120; 88304